=== PATIENT | male | born 1950 | race Caucasian/White ===

== ENCOUNTER 2018-07-17 14:29 | Emergency (ER) | payer OTHER ==
[~2018-07-17] VITALS: Ht 175.3 cm; Wt 107.4 kg
[2018-07-17 14:36] VITALS: Ht 175.3 cm; Wt 107.4 kg
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
[2018-07-17] MEDS ORDERED: IOHEXOL 300MG/ML 150 ML BTL ONE (18:11)
[2018-07-17] MEDS ORDERED: SOD CHLORIDE 0.9% 100 ML ONE (18:11)
[2018-07-17] MEDS ORDERED: ONDANSETRON 4 MG INJ IV PRN (20:30)
[2018-07-17] MEDS ORDERED: ACETAMINOPHEN 325 MG TAB PO PRN (20:30)
--- NOTE | 2018-07-18 16:14 | EN ---
Date/Time of Note Date/Time of Note DATE: 07/18/18 TIME: 16:13 ER Progress Note The patient has been evaluated and there is still no bed available at [facility] so the patient will be admitted here for social reasons. This is been cleared by registration. I will notify the appropriate physician VIKRAM LEDEZMA DO Jul 18, 2018 16:14
[2018-07-18] MEDS ORDERED: ONDANSETRON 4 MG INJ IV PRN (16:30)
[2018-07-18] MEDS ORDERED: ACETAMINOPHEN 325 MG TAB PO PRN (16:30)
--- NOTE | 2018-07-18 21:34 | EN ---
Date/Time of Note Date/Time of Note DATE: 07/18/18 TIME: 21:33 ER Progress Note Spoke with Dr. Tomlinson, the patient will not be admitted. The patient will be boarded in the ER until tomorrow for await re-eval by social insurance adviser for placement during the day tomorrow VIKRAM LEDEZMA DO Jul 18, 2018 21:34
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
[2018-07-19 13:03] VITALS: BP 115/74; PULSE 64; RESP 16
== END 2018-07-19 13:07 | disposition home or self-care (01) ==
LOC: E/R 14:29 → CANBEDREQ 07-18 18:17 → E/R 07-19 13:07
DX: F78 Other intellectual disabilities (principal)
CPT/HCPCS: 36415; 71045; 74177; 80053; 84484; 85025; 93005; 99285; Q9967